=== PATIENT | male | born 1950 | race Asian ===

== ENCOUNTER 2019-02-12 08:01 | Day surgery (SDC) | payer OTHER ==
[~2019-02-12] VITALS: Ht 167.6 cm; Wt 86.4 kg
[~2019-02-12 08:01] MED LIST: CLOP75TA3 PO; CeFAZolin 1 GM/DEXTROSE 50 ML IV ONE; DILT-3 PO; LABE100T8 PO; LINA5TAB PO; ROSU10TA22 PO
[2019-02-12] MEDS ORDERED: KETAMINE HCL 50 MG/ML 10 ML VIAL IVP ONE (08:02)
[2019-02-12] MEDS ORDERED: LIDOCAINE/PF 2% 5 ML VIAL IM ONE (08:02)
[2019-02-12] MEDS ORDERED: FentaNYL CITRATE-PF 100 MCG/2 ML VIAL IVP ONE (08:02)
[2019-02-12] MEDS ORDERED: PROPOFOL 1% 20 ML VIAL IVP ONE (08:02)
[2019-02-12] MEDS ORDERED: CeFAZolin 1 GM/DEXTROSE 50 ML IV ONE (08:26)
[2019-02-12] MEDS ORDERED: SODIUM CHLORIDE 0.9% 1,000 ML IV ONE ×2 (08:26→08:30)
[2019-02-12 08:51] LABS: BASOPHILS % (AUTO) 0.6 % (0.0-2.0); EOSINOPHILS % (AUTO) 2.8 % (1.0-6.0); HEMOGLOBIN 12.7 g/dL (13.5-17.5); LYMPHOCYTES % (AUTO) 23.6 % (22.0-44.0); MEAN CORPUSCULAR HEMOGLOBIN 29.8 pg (26.0-34.0); MEAN CORPUSCULAR HGB CONC 32.5 G/dL (31.0-37.0); MEAN CORPUSCULAR VOLUME 92 fL (80-100); MONOCYTES # (AUTO) 0.7 K/uL (0.1-1.0); MONOCYTES % (AUTO) 8.3 % (2.0-9.0); NEUTROPHILS # (AUTO) 5.5 K/uL (1.8-7.7); NEUTROPHILS % (AUTO) 64.7 % (40.0-70.0); PLATELET COUNT (AUTO) 128 K/uL (150-450); RED BLOOD CELL COUNT(AUTO) 4.26 MIL/uL (4.50-5.90); RED CELL DISTRIBUTION WIDTH 15.1 % (11.5-14.5)
[2019-02-12] MEDS ORDERED: ASPI81 PO (08:58)
[2019-02-12] MEDS ORDERED: LINA5TAB PO (08:58)
[2019-02-12] MEDS ORDERED: SUCR500T PO (08:58)
[2019-02-12] MEDS ORDERED: B,C/1TAB PO (08:58)
[2019-02-12] MEDS ORDERED: LOSA25TA41 PO (08:58)
[2019-02-12 09:02] LABS: CALCIUM, TOTAL 8.9 mg/dL (8.8-10.5); CREATININE 5.43 mg/dL (0.60-1.30); POTASSIUM 4.3 mmol/L (3.5-5.1)
[2019-02-12 09:07] LABS: ALBUMIN 3.5 g/dL (3.4-5.0); BILIRUBIN,TOTAL 0.4 mg/dL (0.1-1.0); TOTAL PROTEIN, SERUM 7.9 g/dL (6.4-8.2)
[2019-02-12] MEDS ORDERED: SODIUM CHLORIDE 0.9% 10 ML ONE (09:07)
[2019-02-12] MEDS ORDERED: LIDOCAINE/PF 1% 30 ML VIAL ONE (09:08)
[2019-02-12] MEDS ORDERED: HEPARIN SODIUM,PORCINE 5,000 UNITS/ML VIAL ONE ×2 (09:08→09:23)
[2019-02-12] MEDS ORDERED: FentaNYL CITRATE-PF 100 MCG/2 ML VIAL IVP PRN (10:45)
[2019-02-12] MEDS ORDERED: OXYGEN THERAPY IH SCH (20:00)
== END 2019-02-12 13:00 | disposition home or self-care (01) ==
LOC: SURGERY 08:01
PROVIDERS: ATTEND Surgery
DX: I12.0 Hypertensive chronic kidney disease with stage 5 chronic kidney disease or end stage renal disease (principal); E11.22 Type 2 diabetes mellitus with diabetic chronic kidney disease; N18.6 End stage renal disease; E78.5 Hyperlipidemia, unspecified; Z87.891 Personal history of nicotine dependence
CPT/HCPCS: 36415; 36832; 80053; 85025; 85610; 85730; 93005; J0690; J1644; J2704; J3010; J3490 ×3; J7030